=== PATIENT | female | born 1965 | race African-American/Black ===

== ENCOUNTER 2016-12-02 13:19 | Inpatient (IN) | payer OTHER ==
[2016-12-02 18:11] VITALS: BMI 30.6
--- NOTE | 2016-12-02 20:13 | HP ---
COWS - Scale Resting Pulse: 0= [place] 80 or Below Sweatin= Chills/Flushing Restless Observation: 3= Extraneous Movement Pupil Size: 0= Normal to Room Light Bone or Joint Aches: 2= Severe Diffuse Aches Runny Nose/ Eye Tearin= Runny Nose/Eyes GI Upset > 30mins: 1= Stomach Cramp Tremor Observation: 2= Slight Tremor Visible Yawning Observation: 1= 1-2x During Session Anxiety or Irritability: 2=Irritable/Anxious Goose Flesh Skin: 0=Smooth Skin COWS Score: 14 Admission [facility] Chief Complaint: WITHDRAWAL SX Allergies/Adverse Reactions: Allergies Allergy/AdvReac Type Severity Reaction Status Date / Time No Known Allergies Allergy Verified 12/02/16 19:29 History of Present Illness: 51 YEARS OLD FEMALE WITH LONG HISTORY OF OPIOID COCAINE NICOTINE DEPENDENCE HAS HYPERTENSION ASTHMA DENIES MENTAL ILLNESS IS ADMITTED TO DETOX Exam Limitations: No Limitations - Ebola screening Have you traveled outside of the country in the last 21 days: No Have you had contact with anyone from an Ebola affected area: No Have you been sick,other than usual withdrawal symptoms: No Do you have a fever: No - Review of Systems Constitutional: Chills, Changes in sleep, Weight Stable EENT: reports: No Symptoms Reported Respiratory: reports: No Symptoms reported Cardiac: reports: No Symptoms Reported GI: reports: Nausea, Poor Fluid Intake, Abdominal cramping : reports: No Symptoms Reported Musculoskeletal: reports: Back Pain, Joint Pain, Muscle Pain, Neck Pain Integumentary: reports: No Symptoms Reported Neuro: reports: Tremors Endocrine: reports: No Symptoms Reported Hematology: reports: No Symptoms Reported Psychiatric: reports: Judgement Intact, Mood/Affect Appropiate, Orientated x3 Other Systems: Reviewed and Negative Patient History - Patient Medical History Hx Anemia: No Hx Asthma: Yes Hx Chronic Obstructive Pulmonary Disease (COPD): No Hx Cancer: No Hx Cardiac Disorders: No Hx Congestive Heart Failure: No Hx Hypertension: Yes Hx Hypercholesterolemia: No Hx Pacemaker: No HX Cerebrovascular Accident: No Hx Seizures: No Hx Dementia: No Hx Diabetes: No Hx Gastrointestinal Disorders: No Hx Liver Disease: No Hx Genitourinary Disorders: No Hx Sexually Transmitted Disorders: No Hx Renal Disease (ESRD): No Hx Thyroid Disease: No Hx Human Immunodeficiency Virus (HIV): No Hx Hepatitis C: No Hx Depression: No Hx Suicide Attempt: No Hx Bipolar Disorder: No Hx Schizophrenia: No - Patient Surgical History Past Surgical History: Yes Hx Neurologic Surgery: No Hx Cataract Extraction: No Hx Cardiac Surgery: No Hx Lung Surgery: No Hx Breast Surgery: No Hx Breast Biopsy: No Hx Abdominal Surgery: No Hx Appendectomy: No Hx Cholecystectomy: No Hx Genitourinary Surgery: No Hx Section: No Hx Orthopedic Surgery: Yes (RT KNEE 2015) Hx Hysterectomy: No Anesthesia Reaction: No - PPD History Previous Implant?: Yes Documented Results: Negative w/o proof Implanted On Prior R Admission?: No PPD to be Administered?: Yes - Reproductive History Patient is a Female of Child Bearing Age (11 -55 yrs old): Yes Last Menstrual Period: 11/02/16 Patient : No - Smoking Cessation Smoking history: Current every day smoker Have you smoked in the past 12 months: Yes Aproximately how many cigarettes per day: 10 Cigars Per Day: 0 Hx Chewing Tobacco Use: No Initiated information on smoking cessation: Yes 'Breaking Loose' booklet given: 12/02/16 - Substance & Tx. History Hx Alcohol Use: No Hx Substance Use: Yes Substance Use Type: Cocaine, Marijuana Hx Substance Use Treatment: Yes - Substances Abused Heroin Route: Inhalation Frequency: Daily Amount used: 2 bags Age of first use: 30 Date of Last Use: 12/02/16 Family Disease History - Family Disease History Family Disease History: Heart Disease: Father (), Mother (), [place] : Grandparent (), Brother, Other: Mother Admission Physical Exam BHS - Vital Signs Vital Signs: Vital Signs - 24 hr 12/02/16 18:08 Temperature 98.2 F Pulse Rate 75 Respiratory 18 Rate Blood Pressure 146/90 - Physical General Appearance: Yes: Appropriately Dressed, Mild Distress, Obese, Tremorous , Irritable, Sweating, Anxious HEENTM: Yes: Hearing grossly Normal, Normal ENT Inspection, Normocephalic, Normal Voice Respiratory: Yes: Chest Non-Tender, No Respiratory Distress, No Accessory Muscle Use, Wheezing Neck: Yes: Supple, Trachea in good position Breast: Yes: Breasts Symetrical Cardiology: Yes: Regular Rhythm, Regular Rate, S1, S2 Abdominal: Yes: Non Tender, Soft Genitourinary: Yes: Within Normal Limits Back: Yes: Normal Inspection Musculoskeletal: Yes: full range of Motion, Gait Steady, Back pain, Muscle Pain Extremities: Yes: Normal Inspection, Normal Range of Motion, Non-Tender, Tremors Neurological: Yes: Fully Oriented, Alert, Motor Strength 5/5, Normal Mood/Affect , Normal Response Integumentary: Yes: Warm Lymphatic: Yes: Within Normal Limits - Diagnostic (1) Cocaine dependence, uncomplicated Current Visit: Yes Status: Chronic (2) Opioid dependence with withdrawal Current Visit: Yes Status: Acute (3) Hypertension Current Visit: Yes Status: Acute Qualifiers: Hypertension type: essential hypertension Qualified Code(s): I10 - Essential (primary) hypertension (4) Asthma Current Visit: Yes Status: Chronic Qualifiers: Asthma severity: mild persistent Asthma complication type: with status asthmaticus Qualified Code(s): J45.32 - Mild persistent asthma with status asthmaticus (5) S/P total knee replacement Current Visit: Yes Status: Resolved Qualifiers: Laterality: right Qualified Code(s): Z96.651 - Presence of right artificial knee joint (6) Nicotine dependence Current Visit: Yes Status: Acute Qualifiers: Nicotine product type: cigarettes Substance use status: in withdrawal Qualified Code(s): F17.213 - Nicotine dependence, cigarettes, with withdrawal Cleared for Admission [facility] - Detox or Rehab [facility] Level of Care: Medically Managed Detox Regimen/Protocol: Methadone [facility] Breath Alcohol Content Breath Alcohol Content: 0 Urine Pregancy Test - Result Urine Test Results: Negative- NO Line Present Urine Drug Screen - Results Drug Screen Negative: No Urine Drug Screen Results: ZABRINA-Cocaine, OPI-Opiates, BZO-Benzodiazepines, MTD- Methadone
[2016-12-02] MEDS ORDERED: ACETAMINOPHEN 325 MG TABLET (FP) PO PRN (20:18)
[2016-12-02] MEDS ORDERED: P-EPHED 60MG/TRIPROLIDI 2.5MG TABLET PO PRN (20:18)
[2016-12-02] MEDS ORDERED: LOPERAMIDE HCL 2 MG CAPSULE PO PRN (20:18)
[2016-12-02] MEDS ORDERED: guaiFENesin/D-METHORPHAN HB 10 ML UNIT-DOSE CUPS PO PRN (20:18)
[2016-12-02] MEDS ORDERED: MENTHOL/PHENOL 1 EACH UD MM PRN (20:18)
[2016-12-02] MEDS ORDERED: MAGNESIUM CITRATE 300 ML BOTTLE PO PRN (20:18)
[2016-12-02] MEDS ORDERED: METHADONE HCL 10 MG TABLET (FOR DETOX USE ONLY) PO ONE ×2 (20:18→23:00)
[2016-12-02] MEDS ORDERED: MAG HYDROX/AL HYDROX/SIMETH 30 ML UNIT-DOSE CUP PO PRN (20:18)
[2016-12-02] MEDS ORDERED: MAGNESIUM HYDROX 2400MG/30ML ORAL SUSPENSION 30 ML CUP PO PRN (20:18)
[2016-12-02] MEDS: diphenhydrAMINE HCL 50 MG CAPSULE PO PRN (21:48)
[2016-12-02] MEDS: diazePAM 5 MG TABLET PO PRN (21:48)
[2016-12-02] MEDS: THIAMINE HCL 100 MG TABLET (FP) PO SCH (21:49)
[2016-12-02 23:47] LABS: URINE APPEARANCE CLEAR; URINE BILIRUBIN NEGATIVE (NEGATIVE); URINE BLOOD NEGATIVE (NEGATIVE); URINE COLOR AMBER; URINE GLUCOSE (UA) NEGATIVE (NEGATIVE); URINE KETONE TRACE (NEGATIVE); URINE LEUK ESTERASE NEGATIVE (NEGATIVE); URINE NITRITE NEGATIVE (NEGATIVE); URINE PROTEIN NEGATIVE (NEGATIVE); URINE UROBILINOGEN 2.0 E.U/dl E.U./dl (0.2-1.0)
[2016-12-03] MEDS ORDERED: NIFEDIPINE PO SCH (10:00)
[2016-12-03] MEDS ORDERED: METHADONE HCL 10 MG TABLET (FOR DETOX USE ONLY) PO ONE (10:00)
[2016-12-03 10:03] LABS: MCH 28.7 pg (25.7-33.7); MCHC 33.2 g/dl (32.0-36.0); MEAN CELL VOLUME 86.5 fl (80-96); MEAN PLT VOLUME 8.8 fl (7.5-11.1); PLATELET COUNT 193 K/MM3 (134-434); RDW 16.4 % (11.6-15.6); WHITE BLOOD COUNT 5.4 K/mm3 (4.0-10.0)
[2016-12-03 10:11] LABS: ALBUMIN 3.6 g/dl (3.4-5.0); ANION GAP 10 (8-16); CO2 29 mmol/L (21-32); CREATININE 0.9 mg/dL (0.55-1.02); GLUCOSE,RANDOM 94 mg/dL (74-106); SGOT/AST 9 U/L (15-37); SGPT/ALT 14 U/L (12-78)
[2016-12-03 10:13] LABS: ALK PHOS 90 U/L (45-117); BILIRUBIN,TOTAL 0.4 mg/dL (0.2-1.0); TOT PROT 7.7 g/dl (6.4-8.2)
[2016-12-03] MEDS: NIFEdipine E.R. 30 MG TABLET (FP) PO SCH (11:02)
[2016-12-03] MEDS: NICOTINE 14 MG/24 HOURS TOPICAL PATCH TD SCH (11:02)
[2016-12-03] MEDS: PRENATAL VITAMINS W/ FOLIC ACID TABLET (FP) PO SCH (11:02)
[2016-12-03] MEDS: NICOTINE POLACRILEX 2 MG GUM BC PRN (11:25)
[2016-12-03] MEDS: diazePAM 5 MG TABLET PO PRN ×3 (11:28→22:36)
[2016-12-03] MEDS: PATIENT'S OWN MEDICATION (NON-FORMULARY) (Bisoprolol Fumarate/Hctz [Bisoprolol-Hctz 10-6.2 PO SCH (11:50)
--- NOTE | 2016-12-03 12:19 | EKG ---
Test Reason : Blood Pressure : / mmHG Vent. Rate : 063 BPM Atrial Rate : 063 BPM P-R Int : 142 ms QRS Dur : 088 ms QT Int : 424 ms P-R-T Axes : 036 057 049 degrees QTc Int : 433 ms NORMAL SINUS RHYTHM NORMAL ECG NO PREVIOUS ECGS AVAILABLE Confirmed by MD RHONDA, SANDY ([id number]) on 12/03/2016 12:19:02 PM Referred By: Confirmed By:SANDY ELLIS MD
--- NOTE | 2016-12-03 15:10 | PN ---
BHS COWS - Scale Resting Pulse: 0= [place] 80 or Below Sweatin= Chills/Flushing Restless Observation: 3= Extraneous Movement Pupil Size: 1= Pupils >than Normal Bone or Joint Aches: 2= Severe Diffuse Aches Runny Nose/ Eye Tearin= Runny Nose/Eyes GI Upset > 30mins: 3= Vomiting/Diarrhea Tremor Observation of Outstretched Hands: 2= Slight Tremor Visible Yawning Observation: 1= 1-2x During Session Anxiety or Irritability: 2=Irritable/Anxious Goose Flesh Skin: 0=Smooth Skin COWS Score: 17 BHS Progress Note (SOAP) Subjective: ALERT,IRRITABLE,ANXIOUS,INTERRUPTED SLEEP,TREMOR,PAIN IN THE BODY AND BACK Objective: 12/03/16 15:08 Vital Signs Temperature 98.1 F 12/03/16 10:00 Pulse Rate 68 12/03/16 10:00 Respiratory Rate 16 12/03/16 10:00 Blood Pressure 119/85 12/03/16 10:00 O2 Sat by Pulse Oximetry (%) EKG NSR,NORMAL ECG Laboratory Last Values WBC 5.4 K/mm3 (4.0-10.0) 12/03/16 07:50 RBC 4.73 M/mm3 (3.60-5.2) 12/03/16 07:50 Hgb 13.6 GM/dL (10.7-15.3) 12/03/16 07:50 Hct 40.9 % (32.4-45.2) 12/03/16 07:50 MCV 86.5 fl (80-96) 12/03/16 07:50 MCHC 33.2 g/dl (32.0-36.0) 12/03/16 07:50 RDW 16.4 % (11.6-15.6) H 12/03/16 07:50 Plt Count 193 K/MM3 (134-434) 12/03/16 07:50 MPV 8.8 fl (7.5-11.1) 12/03/16 07:50 Sodium 137 mmol/L (136-145) 12/03/16 07:50 Potassium 4.2 mmol/L (3.5-5.1) 12/03/16 07:50 Chloride 98 mmol/L (98-107) 12/03/16 07:50 Carbon Dioxide 29 mmol/L (21-32) 12/03/16 07:50 Anion Gap 10 (8-16) 12/03/16 07:50 BUN 14 mg/dL (7-18) 12/03/16 07:50 Creatinine 0.9 mg/dL (0.55-1.02) 12/03/16 07:50 Creat Clearance w eGFR > 60 (>60) 12/03/16 07:50 Random Glucose 94 mg/dL (74-106) 12/03/16 07:50 Calcium 9.0 mg/dL (8.5-10.1) 12/03/16 07:50 Total Bilirubin 0.4 mg/dL (0.2-1.0) 12/03/16 07:50 AST 9 U/L (15-37) L 12/03/16 07:50 ALT 14 U/L (12-78) 12/03/16 07:50 Alkaline Phosphatase 90 U/L (45-117) 12/03/16 07:50 Total Protein 7.7 g/dl (6.4-8.2) 12/03/16 07:50 Albumin 3.6 g/dl (3.4-5.0) 12/03/16 07:50 Urine Color Sil[place] 12/02/16 23:40 Urine Appearance Clear 12/02/16 23:40 Urine pH 5.0 (5.0-8.0) 12/02/16 23:40 Ur Specific [place] > 1.030 (1.005-1.025) H 12/02/16 23:40 Urine Protein Negative (NEGATIVE) 12/02/16 23:40 Urine Glucose (UA) Negative (NEGATIVE) 12/02/16 23:40 Urine Ketones Trace (NEGATIVE) H 12/02/16 23:40 Urine Blood Negative (NEGATIVE) 12/02/16 23:40 Urine Nitrite Negative (NEGATIVE) 12/02/16 23:40 Urine Bilirubin Negative (NEGATIVE) 12/02/16 23:40 Urine Urobilinogen 2.0 e.u/dl E.U./dl (0.2-1.0) H 12/02/16 23:40 Ur Leukocyte Esterase Negative (NEGATIVE) 12/02/16 23:40 RPR Titer Nonreactive (NONREACTIVE) 12/03/16 07:50 Assessment: 12/03/16 15:09 WITHDRAWAL SYMPTOM Plan: CONTINUE DETOX
[2016-12-03] MEDS: THIAMINE HCL 100 MG TABLET (FP) PO SCH (22:36)
[2016-12-03] MEDS: diphenhydrAMINE HCL 50 MG CAPSULE PO PRN (22:37)
[2016-12-03] MEDS: IBUPROFEN 400 MG TABLET (FP) PO PRN (22:38)
[2016-12-04] MEDS ORDERED: METHADONE HCL 5 MG TABLET (FOR DETOX USE ONLY) PO ONE (10:00)
[2016-12-04] MEDS: NIFEdipine E.R. 30 MG TABLET (FP) PO SCH (10:39)
[2016-12-04] MEDS: PATIENT'S OWN MEDICATION (NON-FORMULARY) (Bisoprolol Fumarate/Hctz [Bisoprolol-Hctz 10-6.2 PO SCH (10:39)
[2016-12-04] MEDS: PRENATAL VITAMINS W/ FOLIC ACID TABLET (FP) PO SCH (10:39)
[2016-12-04] MEDS: diazePAM 5 MG TABLET PO PRN ×3 (10:41→22:32)
[2016-12-04] MEDS: NICOTINE 14 MG/24 HOURS TOPICAL PATCH TD SCH (10:41)
[2016-12-04] MEDS: NICOTINE POLACRILEX 2 MG GUM BC PRN (10:42)
[2016-12-04] MEDS: IBUPROFEN 400 MG TABLET (FP) PO PRN ×2 (10:50→22:31)
--- NOTE | 2016-12-04 12:54 | PN ---
BHS COWS - Scale Resting Pulse: 0= [place] 80 or Below Sweatin= Chills/Flushing Restless Observation: 3= Extraneous Movement Pupil Size: 1= Pupils >than Normal Bone or Joint Aches: 2= Severe Diffuse Aches Runny Nose/ Eye Tearin= Runny Nose/Eyes GI Upset > 30mins: 2= Nausea/Diarrhea Tremor Observation of Outstretched Hands: 2= Slight Tremor Visible Yawning Observation: 1= 1-2x During Session Anxiety or Irritability: 2=Irritable/Anxious Goose Flesh Skin: 0=Smooth Skin COWS Score: 16 BHS Progress Note (SOAP) Subjective: ALERT,IRRITABLE,ANXIOUS,PAIN IN THE BODY AND BACK,TREMOR Objective: 12/04/16 12:54 Vital Signs Temperature 97.7 F 12/04/16 09:57 Pulse Rate 77 12/04/16 09:57 Respiratory Rate 16 12/04/16 09:57 Blood Pressure 116/85 12/04/16 09:57 O2 Sat by Pulse Oximetry (%) Assessment: 12/04/16 12:54 WITHDRAWAL SYMPTOM Plan: CONTINUE DETOX
[2016-12-04] MEDS: diphenhydrAMINE HCL 50 MG CAPSULE PO PRN (22:31)
[2016-12-04] MEDS: THIAMINE HCL 100 MG TABLET (FP) PO SCH (22:32)
[2016-12-05] MEDS ORDERED: METHADONE HCL 5 MG TABLET (FOR DETOX USE ONLY) PO ONE (10:00)
[2016-12-05 10:05] VITALS: BP 105/76; PULSE 72; TEMP 99
[2016-12-05] MEDS: PATIENT'S OWN MEDICATION (NON-FORMULARY) (Bisoprolol Fumarate/Hctz [Bisoprolol-Hctz 10-6.2 PO SCH (10:40)
[2016-12-05] MEDS: NIFEdipine E.R. 30 MG TABLET (FP) PO SCH (10:40)
[2016-12-05] MEDS: diazePAM 5 MG TABLET PO PRN (10:40)
[2016-12-05] MEDS: PRENATAL VITAMINS W/ FOLIC ACID TABLET (FP) PO SCH (10:40)
[2016-12-05] MEDS: NICOTINE 14 MG/24 HOURS TOPICAL PATCH TD SCH (10:42)
[2016-12-05] MEDS: NICOTINE POLACRILEX 2 MG GUM BC PRN (10:43)
--- NOTE | 2016-12-05 10:43 | PN ---
BHS Progress Note (SOAP) Subjective: irritable agitation anxiety sweats interrupted sleep Objective: 12/05/16 10:43 Vital Signs Temperature 99.0 F 12/05/16 10:03 Pulse Rate 72 12/05/16 10:03 Respiratory Rate 18 12/05/16 10:03 Blood Pressure 105/76 12/05/16 10:03 O2 Sat by Pulse Oximetry (%) Laboratory Tests 12/02/16 12/03/16 12/03/16 23:40 07:50 07:50 WBC 5.4 RBC 4.73 Hgb 13.6 Hct 40.9 MCV 86.5 MCHC 33.2 RDW 16.4 H Plt Count 193 MPV 8.8 Sodium 137 Potassium 4.2 Chloride 98 Carbon Dioxide 29 Anion Gap 10 BUN 14 Creatinine 0.9 Creat Clearance w eGFR > 60 Random Glucose 94 Calcium 9.0 Total Bilirubin 0.4 AST 9 L ALT 14 Alkaline Phosphatase 90 Total Protein 7.7 Albumin 3.6 Urine Color [place] Urine Appearance Clear Urine pH 5.0 Ur Specific [place] > 1.030 H Urine Protein Negative Urine Glucose (UA) Negative Urine Ketones Trace H Urine Blood Negative Urine Nitrite Negative Urine Bilirubin Negative Urine Urobilinogen 2.0 e.u/dl H Ur Leukocyte Esterase Negative RPR Titer 12/03/16 07:50 WBC RBC Hgb Hct MCV MCHC RDW Plt Count MPV Sodium Potassium Chloride Carbon Dioxide Anion Gap BUN Creatinine Creat Clearance w eGFR Random Glucose Calcium Total Bilirubin AST ALT Alkaline Phosphatase Total Protein Albumin Urine Color Urine Appearance Urine pH Ur Specific [place] Urine Protein Urine Glucose (UA) Urine Ketones Urine Blood Urine Nitrite Urine Bilirubin Urine Urobilinogen Ur Leukocyte Esterase RPR Titer Nonreactive awake/alert ambulating no acute distress Assessment: 12/05/16 10:43 withdrawal sx Plan: continue detox increase fluids
--- NOTE | 2016-12-05 10:50 | PN ---
S Progress Note Note: pt just advised abstract writer that she has spit out her methadone and she is feeling "great". pt will be d/c
--- NOTE | 2016-12-05 10:54 | DS ---
[facility] Detox Discharge Summary Admission Date: 12/02/16 - History Present History: Cocaine Dependence, Opioid Dependence - Physical Exam Results Vital Signs: Vital Signs Temperature 99.0 F 12/05/16 10:03 Pulse Rate 72 12/05/16 10:03 Respiratory Rate 18 12/05/16 10:03 Blood Pressure 105/76 12/05/16 10:03 O2 Sat by Pulse Oximetry (%) - Medication Discharge Medications: Ambulatory Orders Bisoprolol Fumarate/Hctz [Bisoprolol-Hctz 10-6.25 mg Tab] 1 each PO DAILY Nifedipine [Procardia Capsule -] 30 mg PO DAILY 12/02/16 - Diagnosis (1) Hypertension Current Visit: Yes Status: Chronic Qualifiers: Hypertension type: essential hypertension Qualified Code(s): I10 - Essential (primary) hypertension (2) Nicotine dependence Current Visit: Yes Status: Chronic Qualifiers: Nicotine product type: cigarettes Substance use status: uncomplicated Qualified Code(s): F17.210 - Nicotine dependence, cigarettes, uncomplicated (3) Opioid dependence with withdrawal Current Visit: Yes Status: Chronic (4) Asthma Current Visit: Yes Status: Chronic Qualifiers: Asthma severity: mild persistent Asthma complication type: with status asthmaticus Qualified Code(s): J45.32 - Mild persistent asthma with status asthmaticus (5) Cocaine dependence, uncomplicated Current Visit: Yes Status: Chronic (6) S/P total knee replacement Current Visit: Yes Status: Resolved Qualifiers: Laterality: right Qualified Code(s): Z96.651 - Presence of right artificial knee joint - AMA Did Patient Leave Against Medical Advice: Yes (administrative discharge)
[2016-12-06] MEDS ORDERED: METHADONE HCL 10 MG TABLET (FOR DETOX USE ONLY) PO ONE (10:00)
[2016-12-07] MEDS ORDERED: METHADONE HCL 5 MG TABLET (FOR DETOX USE ONLY) PO ONE (06:00)
== END 2016-12-05 11:35 | disposition home or self-care (01) | DRG 773 ==
LOC: YASAS 13:19 → Y6N 19:16
PROVIDERS: ADMIT Internal Medicine; ATTEND Internal Medicine
PROC: HZ2ZZZZ Detoxification Services for Substance Abuse Treatment (ICD-10-PCS; principal; 2016-12-02)
DX: F11.23 Opioid dependence with withdrawal (principal); F14.20 Cocaine dependence, uncomplicated; F17.210 Nicotine dependence, cigarettes, uncomplicated; F91.8 Other conduct disorders; I10 Essential (primary) hypertension; J45.32 Mild persistent asthma with status asthmaticus; E66.9 Obesity, unspecified; Z68.30 Body mass index [BMI] 30.0-30.9, adult; Z96.651 Presence of right artificial knee joint
CPT/HCPCS: 36415; 80053; 81003; 85027; 86593; 93005; 93010